=== PATIENT | female | born 1990 | race Caucasian/White ===

== ENCOUNTER 2019-03-30 12:46 | Emergency (ER) | payer OTHER ==
[~2019-03-30] VITALS: Ht 154.9 cm; Wt 68.0 kg
[2019-03-30] MEDS ORDERED: TETRACAINE HCL 0.5% OPHT DROP 2 ML BOTTLE ONE (12:55)
[2019-03-30] MEDS ORDERED: FLUORESCEIN SODIUM 1 MG STRIP ONE ×2 (12:56→13:04)
--- NOTE | 2019-03-30 13:10 | NUR ---
assissted md in eye exam.pt tolerated well.
[2019-03-30] MEDS ORDERED: TETRACAINE HCL 0.5% OPHT DROP 2 ML BOTTLE OP ONE (13:15)
[2019-03-30] MEDS ORDERED: FLUORESCEIN SODIUM 1 MG STRIP OP ONE (13:15)
--- NOTE | 2019-03-30 13:29 | NUR ---
Patient discharged to home in stable conditon. Written and verbal after care instructions given. Patient verbalizes understanding of instructions.
== END 2019-03-30 13:30 | disposition home or self-care (01) ==
LOC: ER 12:46
DX: S05.02XA Injury of conjunctiva and corneal abrasion without foreign body, left eye, initial encounter (principal); X58.XXXA Exposure to other specified factors, initial encounter; Y93.89 Activity, other specified; Y92.89 Other specified places as the place of occurrence of the external cause; Y99.8 Other external cause status
CPT/HCPCS: A4663